=== PATIENT | female | born 1960 | race Hispanic/Latino ===

== ENCOUNTER → 2019-05-22 | Outpatient (CLI) | payer BC | END | disposition home or self-care (01) | LOC: RAH 10:21 | PROVIDERS: ATTEND Obstetrics & Gynecology | DX: Z12.31 Encounter for screening mammogram for malignant neoplasm of breast (principal) | CPT/HCPCS: 77067 ==

== ENCOUNTER → 2019-06-12 | Outpatient (CLI) | payer BC | END | disposition home or self-care (01) | LOC: RAH 15:12 | PROVIDERS: ATTEND Obstetrics & Gynecology | DX: N60.01 Solitary cyst of right breast (principal); N60.02 Solitary cyst of left breast | CPT/HCPCS: 76641 ==

== ENCOUNTER → 2020-01-01 | Outpatient (CLI) | payer BC | END | disposition home or self-care (01) | LOC: RAH 12:56 | PROVIDERS: ATTEND Obstetrics & Gynecology | DX: N60.02 Solitary cyst of left breast (principal); N60.01 Solitary cyst of right breast; N63.20 Unspecified lump in the left breast, unspecified quadrant; N63.10 Unspecified lump in the right breast, unspecified quadrant | CPT/HCPCS: 76641 ==

== ENCOUNTER 2022-04-09 10:00 | Inpatient (IN) | payer BC ==
[~2022-04-09] VITALS: Ht 154.9 cm; Wt 66.4 kg
[2022-04-09 12:09] LABS: BASOPHILS % (AUTO) 0.2 % (0.0-5.0); EOSINOPHILS % (AUTO) 1.2 % (0.0-8.0); HEMATOCRIT 44.3 % (36-48); LYMPHOCYTES % (AUTO) 27.1 % (21.0-51.0); MEAN CORPUSCULAR HEMOGLOBIN 31.3 pg (27.0-33.0); MEAN CORPUSCULAR HGB CONC 33.9 g/dL (32.0-36.0); MEAN CORPUSCULAR VOLUME 92.5 fL (79-99); MONOCYTES % (AUTO) 6.2 % (3.0-13.0); NEUTROPHILS % (AUTO) 64.7 % (40.0-77.0); PLATELET COUNT (AUTO) 216 K/uL (130-400); RED BLOOD CELL COUNT(AUTO) 4.79 MIL/uL (4.00-5.50); RED CELL DISTRIBUTION WIDTH 12.6 % (11.0-15.5); WHITE BLOOD COUNT (AUTO) 8.4 K/uL (4.8-10.8)
[2022-04-09 12:19] LABS: INR 0.95 (0.85-1.15); PROTHROMBIN TIME 10.4 SEC (9.6-11.6)
[2022-04-09 12:20] LABS: PARTIAL THROMBOPLASTIN TIME 25.1 SEC (26.3-35.5)
[2022-04-09 12:26] LABS: APPEARANCE,URINE Clear (CLEAR); BILIRUBIN,URINE Negative (NEGATIVE); COLOR,URINE Yellow (YELLOW); GLUCOSE, URINE (UA) Negative (NEGATIVE); KETONES,URINE Negative (NEGATIVE); LEUKOCYTE ESTERASE ,URINE Trace (NEGATIVE); NITRATE,URINE Negative (NEGATIVE); OCCULT BLOOD,URINE Negative (NEGATIVE); PROTEIN,URINE Negative (NEGATIVE); UROBILINOGEN,URINE 0.2 mg/dL (0.2-1.0)
[2022-04-09 12:35] VITALS: BP 115/72
[2022-04-09 12:36] LABS: BACTERIA,URINE Rare /HPF (None Seen); MUCUS,URINE Rare LPF (None Seen); RBC,URINE None Seen /HPF (0-1); SQUAMOUS EPITHELIAL CELL,UR Rare /HPF (0-2); WBC,URINE 0-1 /HPF (0-1)
[2022-04-09] MEDS ORDERED: ROSU5TAB12 PO (12:37)
[2022-04-09] MEDS ORDERED: ASCO500T20 PO (12:37)
[2022-04-09] MEDS ORDERED: CALC1TAB2 PO (12:37)
[2022-04-10] VITALS (22 sets, daily range): BP systolic 89–119; BP diastolic 40–68
[2022-04-10] MEDS ORDERED: CEFAZOLIN SODIUM 1 GM VIAL ONE (06:37)
[2022-04-10] MEDS ORDERED: LACTATED RINGERS 1000ML 1,000 ML IV ONE (06:37)
[2022-04-10] MEDS ORDERED: MIDAZOLAM HCL 1 MG/ML 2ML VIAL ONE (09:57)
[2022-04-10] MEDS ORDERED: PROPOFOL 10 MG/ML 20ML VIAL IV ONE (10:01)
[2022-04-10] MEDS ORDERED: LIDOCAINE PF 100MG/5ML (2%) SYRINGE 5ML ONE (10:01)
[2022-04-10] MEDS ORDERED: ROCURONIUM 10MG/1ML SYR 10 MG/ML ML ONE (10:01)
[2022-04-10] MEDS ORDERED: FENTANYL CITRATE PF 50 MCG/1 ML 2ML VIAL ONE ×2 (10:02→10:24)
[2022-04-10] MEDS ORDERED: GLYCOPYRROLATE 1 MG/5 ML SYRINGE ONE (11:25)
[2022-04-10] MEDS ORDERED: NEOSTIGMINE 5MG/5ML SYR IV ONE (11:26)
[2022-04-10] MEDS ORDERED: ONDANSETRON 4MG INJ ONE (12:11)
[2022-04-10] MEDS ORDERED: METOCLOPRAMIDE 10 MG/2 ML VIAL ONE (12:19)
[2022-04-10] MEDS: ACETAMINOPHEN WITH CODEINE 1 TAB TAB ONE ×2 (13:21→13:26)
[2022-04-10] MEDS ORDERED: BISACODYL 10 MG SUPP.RECT RC PRN (13:30)
[2022-04-10] MEDS ORDERED: ONDANSETRON 4MG INJ IVP PRN (13:30)
[2022-04-10] MEDS ORDERED: PROMETHAZINE HCL 25 MG/ML 1ML AMPULE IM PRN ×2 (13:30)
[2022-04-10] MEDS ORDERED: ACETAMINOPHEN WITH CODEINE 1 TAB TAB PO PRN (13:30)
[2022-04-10] MEDS ORDERED: MEPERIDINE-PF 75 MG/ML SYG IM PRN (13:30)
[2022-04-10] MEDS: IBUPROFEN 600 MG TABLET PO PRN (13:30)
[2022-04-10] MEDS: DEXTROSE 5 %-0.45 % NACL 1,000 ML IV PRN ×2 (13:32→23:25)
[2022-04-11 03:47] VITALS: BP 101/54
[2022-04-11 06:06] LABS: HEMATOCRIT 35.5 % (36-48); MEAN CORPUSCULAR HEMOGLOBIN 31.3 pg (27.0-33.0); MEAN CORPUSCULAR HGB CONC 33.5 g/dL (32.0-36.0); MEAN CORPUSCULAR VOLUME 93.4 fL (79-99); RED BLOOD CELL COUNT(AUTO) 3.8 MIL/uL (4.00-5.50); RED CELL DISTRIBUTION WIDTH 12.6 % (11.0-15.5); WHITE BLOOD COUNT (AUTO) 8.8 K/uL (4.8-10.8)
[2022-04-11 07:50] VITALS: BP 108/50
[2022-04-11] MEDS: DOCUSATE SODIUM 100 MG CAP PO PRN ×2 (09:45→21:17)
[2022-04-11] MEDS: SIMETHICONE 80 MG TAB.CHEW PO PRN ×2 (09:45→21:17)
[2022-04-11] MEDS: IBUPROFEN 600 MG TABLET PO PRN (09:52)
[2022-04-11 11:08] VITALS: BP 114/58
[2022-04-11] MEDS ORDERED: HYDROCODONE/ACETAMINOPHEN 5/325 MG TAB PO PRN (15:30)
[2022-04-11] MEDS ORDERED: ACETAMINOPHEN WITH CODEINE 1 TAB TAB PO PRN (15:30)
[2022-04-11 15:35] VITALS: BP 104/56
[2022-04-11] MEDS: IBUPROFEN 800 MG TAB PO PRN (16:50)
[2022-04-11 19:40] VITALS: BP 112/69
[2022-04-11 23:49] VITALS: BP 117/61
[2022-04-12 00:12] VITALS: BP 119/73
[2022-04-12 03:41] VITALS: BP 136/75
[2022-04-12] MEDS: IBUPROFEN 800 MG TAB PO PRN ×2 (03:48→08:51)
[2022-04-12 08:14] VITALS: BP 114/63
[2022-04-12] MEDS: DOCUSATE SODIUM 100 MG CAP PO PRN (08:50)
[2022-04-12] MEDS ORDERED: ACET-2079 PO (11:00)
[2022-04-12] MEDS ORDERED: NITR100C4 PO (11:01)
[2022-04-12] MEDS ORDERED: FERS325 PO (11:03)
== END 2022-04-12 12:30 | disposition home or self-care (01) | DRG 747 ==
LOC: DAHIP 04-10 05:51 → WSH 04-10 12:45
PROVIDERS: ADMIT Obstetrics & Gynecology; ATTEND Obstetrics & Gynecology
PROC: 0UQF0ZZ Repair Cul-de-sac, Open Approach (ICD-10-PCS; principal; 2022-04-10 09:47)
PROC: 0UQF3ZZ Repair Cul-de-sac, Percutaneous Approach (ICD-10-PCS; 2022-04-10 09:47)
PROC: 0JQC3ZZ Repair Pelvic Region Subcutaneous Tissue and Fascia, Percutaneous Approach (ICD-10-PCS; 2022-04-10 09:47)
PROC: 0T9B30Z Drainage of Bladder with Drainage Device, Percutaneous Approach (ICD-10-PCS; 2022-04-10 09:47)
DX: N81.10 Cystocele, unspecified (principal); N81.6 Rectocele; E78.5 Hyperlipidemia, unspecified; D64.9 Anemia, unspecified; K46.9 Unspecified abdominal hernia without obstruction or gangrene
CPT/HCPCS: 36415; 81001; 85025; 85027; 85610; 85730; 86156; 86850; 86870; 86900; 86901; 87635; 93005; A4351; A4606; G0378; J0690; J2001; J2175; J2250; J2405; J2550; J2704; J2710; J2765; J3010; J3490; J7120

== ENCOUNTER 2024-01-17 15:01 | Emergency (ER) | payer BC ==
[~2024-01-17] VITALS: Ht 154.9 cm; Wt 69.4 kg
[~2024-01-17 15:01] MED LIST: ACET-2079 PO; ASCO500T20 PO; CALC1TAB2 PO; FERS325 PO; NITR100C4 PO; ROSU5TAB12 PO
[2024-01-17 15:15] VITALS: O2SAT 99
[2024-01-17 15:52] LABS: BASOPHILS # (AUTO) 0.02 K/uL (0.00-0.20); BASOPHILS % (AUTO) 0.2 % (0.0-5.0); EOSINOPHILS # (AUTO) 0.07 K/uL (0.00-0.70); EOSINOPHILS % (AUTO) 0.7 % (0.0-8.0); HEMATOCRIT 40.9 % (36-48); IMMATURE GRANULOCYTE ABSOLUTE 0.04 K/uL (0-1); LYMPHOCYTES # (AUTO) 1.8 K/uL (1.0-4.8); LYMPHOCYTES % (AUTO) 18.2 % (21.0-51.0); MEAN CORPUSCULAR HEMOGLOBIN 31.2 pg (27.0-33.0); MEAN CORPUSCULAR HGB CONC 34.5 g/dL (32.0-36.0); MEAN CORPUSCULAR VOLUME 90.5 fL (79-99); MONOCYTES # (AUTO) 0.5 K/uL (0.1-1.0); MONOCYTES % (AUTO) 5.4 % (3.0-13.0); NEUTROPHILS # (AUTO) 7.5 K/uL (1.8-7.7); NEUTROPHILS % (AUTO) 75.1 % (40.0-77.0); PLATELET COUNT (AUTO) 224 K/uL (130-400); RED BLOOD CELL COUNT(AUTO) 4.52 MIL/uL (4.00-5.50); RED CELL DISTRIBUTION WIDTH 12.3 % (11.0-15.5); WHITE BLOOD COUNT (AUTO) 9.9 K/uL (4.8-10.8)
[2024-01-17] MEDS: HYDROXYZINE 25 MG TABLET PO ONE (16:01)
[2024-01-17 16:02] LABS: CARBON DIOXIDE 25 mmol/L (21-32); CHLORIDE 105 mmol/L (101-111); CREATININE 0.8 mg/dL (0.5-1.0); GLOMERULAR FILTR. RATE CALC 82 mL/min (>90); GLUCOSE,RANDOM 111 mg/dL (70-105); POTASSIUM 3.4 mmol/L (3.5-5.1); SODIUM SERUM 141 mmol/L (136-145); UREA NITROGEN, BLOOD 19 mg/dL (7-18)
[2024-01-17 16:10] LABS: ALANINE AMINOTRANSFERASE 44 U/L (12-78); ALBUMIN 3.9 g/dL (3.5-5.0); ASPARTATE AMINOTRANSFERASE 25 U/L (10-37); BILIRUBIN,TOTAL 0.3 mg/dL (0.2-1.0); CREATINE KINASE, TOTAL 67 U/L (21-232); TOTAL PROTEIN, SERUM 7.5 g/dL (6.0-8.3)
[2024-01-17 16:28] VITALS: BP 129/77; PULSE 113; RESP 18
[2024-01-17] MEDS ORDERED: HYDR50CA50 PO (17:28)
== END 2024-01-17 18:30 | disposition home or self-care (01) ==
LOC: EDH 15:01
DX: N93.9 Abnormal uterine and vaginal bleeding, unspecified (principal); F41.9 Anxiety disorder, unspecified; R00.2 Palpitations; E78.00 Pure hypercholesterolemia, unspecified; Z79.899 Other long term (current) drug therapy; Z90.710 Acquired absence of both cervix and uterus; Z90.49 Acquired absence of other specified parts of digestive tract
CPT/HCPCS: 36415; 80053; 82550; 84484; 85025; 93005